=== PATIENT | male | born 1985 | race Asian ===

== ENCOUNTER 2016-12-28 11:04 | Inpatient (IN) | payer BC ==
[2016-12-28] VITALS (10 sets, daily range): BP systolic 117–160; BP diastolic 67–93
[~2016-12-28] VITALS: Ht 167.6 cm; Wt 74.8 kg
[2016-12-28] MEDS ORDERED: IV NORMAL SALINE 1000ML BAG 1,000 ML IV SCH (12:03)
--- NOTE | 2016-12-28 12:06 | PHYS DOC ---
Past Medical History Past Medical History: No Pertinent History Past Surgical History: No Surgical History Alcohol Use: Occasionally Drug Use: None Adult General Chief Complaint Chief Complaint: ABDOMINAL PAIN HPI HPI Patient is a 30 year old male who presents with nausea vomiting and abdominal pain. He states his symptoms started 2 nights ago with just a little epigastric discomfort and then last night he got worse. This morning he took his kids to school and he felt very nauseated he went home and vomited had one loose stool. He states the pain is still around his epigastric/periumbilical area every went to an urgent care and was sent here because he had right lower quadrant tenderness on exam. He denies any past medical history other than taking Claritin for seasonal allergies, denies any surgical history. He states the pain is still around his bellybutton and is constant now. He denies any blood in his vomit or stools. Review of Systems Review of Systems Constitutional: Denies fever or chills [] Eyes: Denies change in visual acuity, redness, or eye pain [] HENT: Denies nasal congestion or sore throat [] Respiratory: Denies cough or shortness of breath [] Cardiovascular: No additional information not addressed in HPI [] GI: Positive for abdominal pain, nausea, vomiting, denies any blood or black tarry stools. : Denies dysuria or hematuria [] Musculoskeletal: Denies back pain or joint pain [] Integument: Denies rash or skin lesions [] Neurologic: Denies headache, focal weakness or sensory changes [] Endocrine: Denies polyuria or polydipsia [] Current Medications Current Medications Current Medications Medications (Trade) Dose Ordered Sig/[facility] Start Time Stop Time Status Last Admin Dose Admin Info (Do NOT chart on this entry -- for MONITORING) 1 each PRN DAILY PRN 12/28/16 12:45 12/30/16 12:44 Iohexol (Omnipaque 240 Mg/ml) 30 ml 1X ONCE 12/28/16 12:45 12/28/16 12:46 DC Iohexol (Omnipaque 300 Mg/ml) 75 ml 1X ONCE 12/28/16 12:45 12/28/16 12:46 DC 12/28/16 13:25 75 ML Morphine Sulfate 2 mg PRN Q15MIN PRN 12/28/16 12:15 12/29/16 12:14 12/28/16 12:18 2 MG Ondansetron HCl (Zofran) 4 mg 1X ONCE 12/28/16 12:30 12/28/16 12:31 DC 12/28/16 12:17 4 MG Piperacillin Sod/ Tazobactam Sod (Zosyn Per Pharmacy) 1 each PRN DAILY PRN 12/28/16 14:15 Piperacillin Sod/ Tazobactam Sod 3.375 gm/Sodium Chloride 50 ml @ 100 mls/hr Q6HRS 12/28/16 15:00 Sodium Chloride 1,000 ml @ 1,000 mls/hr Q1H 12/28/16 12:03 12/28/16 13:02 DC 12/28/16 12:16 1,000 MLS/HR Allergies Allergies Allergies Coded Allergies Type Severity Reaction Last Updated Verified No Known Drug Allergies 12/28/16 No Physical Exam Physical Exam Constitutional: Well developed, well nourished, no acute distress, non-toxic appearance. [] HENT: Normocephalic, atraumatic, bilateral external ears normal, oropharynx moist, no oral exudates, nose normal. [] Eyes: PERRLA, EOMI, conjunctiva normal, no discharge. [] Neck: Normal range of motion, no tenderness, supple, no stridor. [] Cardiovascular:Heart rate regular rhythm, no murmur [] Lungs & Thorax: Bilateral breath sounds clear to auscultation [] Abdomen: Bowel sounds hypoactive, soft, tender to palpation in the right lower quadrant, no masses, no pulsatile masses. [] Skin: Warm, dry, no erythema, no rash. [] Back: No tenderness, no CVA tenderness. [] Extremities: No tenderness, no cyanosis, no clubbing, ROM intact, no edema. [] Neurologic: Alert and oriented X 3, normal motor function, normal sensory function, no focal deficits noted. [] Psychologic: Affect normal, judgement normal, mood normal. [] Current Patient Data Vital Signs Vital Signs Date Time Temp Pulse Resp B/P (MAP) Pulse Ox O2 Delivery O2 Flow Rate FiO2 12/28/16 12:18 15 100 Room Air 12/28/16 11:50 97.6 55 136/90 (105) 97.6 Lab Values Laboratory Tests Test 12/28/16 11:50 12/28/16 12:32 White Blood Count 17.1 x10^3/uL (4.0-11.0) H Red Blood Count 5.60 x10^6/uL (4.30-5.70) Hemoglobin 17.2 g/dL (13.0-17.5) Hematocrit 50.6 % (39.0-53.0) Mean Corpuscular Volume 90 fL (79-100) Mean Corpuscular Hemoglobin 31 pg (25-35) Mean Corpuscular Hemoglobin Concent 34 g/dL (31-37) Red Cell Distribution Width 12.7 % (11.5-14.5) Platelet Count 209 x10^3/uL (140-400) Neutrophils (%) (Auto) 92 % (31-73) H Lymphocytes (%) (Auto) 6 % (24-48) L Monocytes (%) (Auto) 2 % (0-9) Eosinophils (%) (Auto) 0 % (0-3) Basophils (%) (Auto) 0 % (0-3) Neutrophils # (Auto) 15.7 x10^3uL (1.8-7.7) H Lymphocytes # (Auto) 1.0 x10^3/uL (1.0-4.8) Monocytes # (Auto) 0.4 x10^3/uL (0.0-1.1) Eosinophils # (Auto) 0.0 x10^3/uL (0.0-0.7) Basophils # (Auto) 0.0 x10^3/uL (0.0-0.2) Segmented Neutrophils % 85 % (35-66) H Band Neutrophils % 6 % (0-9) Lymphocytes % 8 % (24-48) L Monocytes % 1 % (0-10) Platelet Estimate Adequate (ADEQUATE) Sodium Level 141 mmol/L (136-145) Potassium Level 3.6 mmol/L (3.5-5.1) Chloride Level 104 mmol/L (98-107) Carbon Dioxide Level 27 mmol/L (21-32) Anion Gap 10 (6-14) Blood Urea Nitrogen 14 mg/dL (8-26) Creatinine 0.9 mg/dL (0.7-1.3) Estimated GFR (Cockcroft-Gault) 98.4 Glucose Level 127 mg/dL (70-99) H Calcium Level 9.5 mg/dL (8.5-10.1) Magnesium Level 1.8 mg/dL (1.8-2.4) Total Bilirubin 0.6 mg/dL (0.2-1.0) Direct Bilirubin 0.2 mg/dL (0.0-0.2) Aspartate Amino Transferase (AST) 16 U/L (15-37) Alanine Aminotransferase (ALT) 21 U/L (16-63) Alkaline Phosphatase 69 U/L (46-116) Creatine Kinase 99 U/L (39-308) Creatine Kinase MB (Mass) < 0.5 ng/mL (0.0-3.6) Creatine Kinase MB Relative Index 0.5 % (0-4) Total Protein 7.8 g/dL (6.4-8.2) Albumin 4.4 g/dL (3.4-5.0) Lipase 209 U/L (73-393) Laboratory Tests 12/28/16 11:50 Laboratory Tests 12/28/16 12:32 EKG EKG [] Radiology/Procedures Radiology/Procedures [facility] [address] [place] [address] IMAGING REPORT Signed PATIENT: MAE JACOB ACCOUNT: [id number] : 1985 LOCATION: ER AGE: 30 SEX: M EXAM STATUS: REG ER ORD. PHYSICIAN: WENDY SIMS MD REASON: abd pain PROCEDURE: CT ABD PELV W/ORAL&IV CONTRAST CT abdomen/pelvis Indication: Right lower quadrant pain for one day, nausea and vomiting Technique: CT abdomen/pelvis with 75 mL of Omnipaque 300 IV and 30 mL of Omnipaque 240 by mouth with multi planar reformats. Comparison: None Findings: Heart is normal in size. No pericardial or pleural effusion. Clear lung bases. Liver, spleen, gallbladder, pancreas, adrenals and kidneys are within normal limits. No retroperitoneal or pelvic adenopathy. The appendix is dilated measuring 1.3 cm with periappendiceal inflammatory changes and appendicolith in the proximal appendiceal lumen. No periappendiceal fluid collection. No bowel obstruction. No free pelvic fluid. Bladder and prostate are within normal limits. No right lower quadrant adenopathy. No suspicious bony lesions. Impression: Findings of uncomplicated appendicitis. Findings discussed with ER staff Henrietta on 12/28/2016 at 1:48 PM. PQRS Compliance Statement: One or more of the following individualized dose reduction techniques were utilized for this examination: 1. Automated exposure control 2. Adjustment of the mA and/or kV according to patient size 3. Use of iterative reconstruction technique DICTATED and SIGNED BY: ARCHANA VERA DO DATE: 12/28/16 7341 CC: WENDY SIMS MD; JENNIFER STAPLETON MD ~ Impressions: Acute appendicitis Course & Med Decision Making Course & Med Decision Making Pertinent Labs and Imaging studies reviewed. (See chart for details) CT scan confirms appendicitis. Patient's comfortable currently. Spoke with Dr. Ahumada with surgery regarding the case and Dr. Curiel with internal medicine. I 've ordered Zosyn. Patient's agreeable plans in stable condition this time. Orders have been written. Dragon Disclaimer Dragon Disclaimer This electronic medical record was generated, in whole or in part, using a voice recognition dictation system. Departure Departure Impression: Primary Impression: Appendicitis Disposition: ADMITTED INPATIENT Admitting Physician: Adair Curiel Condition: STABLE Referrals: JENNIFER STAPLETON MD (PCP) Problem Qualifiers Primary Impression: Appendicitis Appendicitis type: acute appendicitis Acute appendicitis type: with localized peritonitis Qualified Codes: K35.3 - Acute appendicitis with localized peritonitis WENDY SIMS MD Dec 28, 2016 12:06
[2016-12-28 12:13] LABS: BASO % 0 % (0-3); EOS % 0 % (0-3); HEMATOCRIT 50.6 % (39.0-53.0); HEMOGLOBIN 17.2 g/dL (13.0-17.5); LYMPH % 6 % (24-48); MEAN CORPUSCULAR HEMOGLOBIN 31 pg (25-35); MEAN CORPUSCULAR HGB CONC 34 g/dL (31-37); MEAN CORPUSCULAR VOLUME 90 fL (79-100); MONO % 2 % (0-9); NEUT % 92 % (31-73); PLATELET COUNT 209 x10^3/uL (140-400); RED CELL DISTRIBUTION WIDTH 12.7 % (11.5-14.5); WHITE BLOOD COUNT 17.1 x10^3/uL (4.0-11.0)
[2016-12-28] MEDS ORDERED: MORPHINE SULFATE 4 MG/ML DISP.SYRIN. IV/SQ PRN (12:15)
[2016-12-28] MEDS ORDERED: ONDANSETRON PF 4 MG/2 ML VIAL. IV ONE (12:30)
[2016-12-28 12:36] LABS: PLT ESTIMATE ADEQUATE (ADEQUATE)
[2016-12-28] MEDS ORDERED: IOHEXOL 300 MG/ML 75 ML VIAL IV ONE (12:45)
[2016-12-28] MEDS ORDERED: IOHEXOL 240 MG/ML 50ML VIAL. PO ONE (12:45)
[2016-12-28] MEDS ORDERED: CONTRAST GIVEN MC PRN (12:45)
[2016-12-28 12:57] LABS: CALCIUM 9.5 mg/dL (8.5-10.1); CREATININE 0.9 mg/dL (0.7-1.3); GFR 98.4; POTASSIUM 3.6 mmol/L (3.5-5.1)
[2016-12-28 13:02] LABS: ALBUMIN 4.4 g/dL (3.4-5.0); DIRECT BILIRUBIN 0.2 mg/dL (0.0-0.2); MAGNESIUM 1.8 mg/dL (1.8-2.4); TOTAL BILIRUBIN 0.6 mg/dL (0.2-1.0); TOTAL PROTEIN 7.8 g/dL (6.4-8.2)
[2016-12-28 13:11] LABS: CREATINE KINASE 99 U/L (39-308)
[2016-12-28 13:15] LABS: CKMB MASS < 0.5 ng/mL (0.0-3.6)
--- NOTE | 2016-12-28 13:51 | RAD ---
CT abdomen/pelvis Indication: Right lower quadrant pain for one day, nausea and vomiting Technique: CT abdomen/pelvis with 75 mL of Omnipaque 300 IV and 30 mL of Omnipaque 240 by mouth with multi planar reformats. Comparison: None Findings: Heart is normal in size. No pericardial or pleural effusion. Clear lung bases. Liver, spleen, gallbladder, pancreas, adrenals and kidneys are within normal limits. No retroperitoneal or pelvic adenopathy. The appendix is dilated measuring 1.3 cm with periappendiceal inflammatory changes and appendicolith in the proximal appendiceal lumen. No periappendiceal fluid collection. No bowel obstruction. No free pelvic fluid. Bladder and prostate are within normal limits. No right lower quadrant adenopathy. No suspicious bony lesions. Impression: Findings of uncomplicated appendicitis. Findings discussed with ER staff Henrietta on 12/28/2016 at 1:48 PM. PQRS Compliance Statement: One or more of the following individualized dose reduction techniques were utilized for this examination: 1. Automated exposure control 2. Adjustment of the mA and/or kV according to patient size 3. Use of iterative reconstruction technique
[2016-12-28] MEDS ORDERED: PIP/TAZO PER PHARMACY MC PRN (14:15)
[2016-12-28] MEDS ORDERED: MORPHINE SULFATE 4 MG/ML DISP.SYRIN. IV PRN (14:15)
[2016-12-28] MEDS ORDERED: IV DEXTROSE 5 %-0.45 % NACL 1,000 ML IV ONE (14:15)
[2016-12-28] MEDS ORDERED: ONDANSETRON PF 4 MG/2 ML VIAL. IV PRN (14:15)
[2016-12-28] MEDS ORDERED: PIPERACILLIN/TAZOBACTAM 3.375 GM in IV NORMAL SALINE 50ML 50 ML IV SCH (15:00)
[2016-12-28] MEDS ORDERED: DEXAMETHASONE SOD PHOS 20 MG/5 ML VIAL. ONE (15:01)
[2016-12-28] MEDS ORDERED: ONDANSETRON PF 4 MG/2 ML VIAL. ONE (15:01)
[2016-12-28] MEDS ORDERED: FAMOTIDINE 20 MG/2 ML VIAL ONE (15:01)
[2016-12-28] MEDS ORDERED: PROPOFOL 20 ML IV ONE (15:01)
[2016-12-28] MEDS ORDERED: LIDOCAINE 2% PF Vial for OR 5 ML VIAL. ONE (15:01)
[2016-12-28] MEDS ORDERED: fentaNYL PF VIAL 100 MCG/2 ML VIAL ONE ×2 (15:04→17:04)
[2016-12-28] MEDS ORDERED: MIDAZOLAM HCL/PF 2 MG/2 ML VIAL. ONE (15:05)
[2016-12-28] MEDS ORDERED: SURGICEL HEMOSTAT 4X8 EACH. ONE (15:08)
[2016-12-28] MEDS ORDERED: BUPIVAC MPF-EPI 0.5%-1:200000 30 ML VIAL. ONE (15:08)
--- NOTE | 2016-12-28 15:24 | PDOC ---
Provider Note Provider Note #[id number]--pmdqqom appendicitis. to OR for lap samuel, duyen open. r/b d/w him and his . CRISTINA JENNINGS MD Dec 28, 2016 15:24
[2016-12-28] MEDS ORDERED: GLYCOPYRROLATE 1 MG/5 ML VIAL. ONE (15:50)
[2016-12-28] MEDS ORDERED: NEOSTIGMINE METHYLSULFATE 5 MG/5 ML SYRINGE. ONE (15:50)
[2016-12-28] MEDS ORDERED: DESFLURANE 31 TO 60 MINUTES IH ONE (15:55)
--- NOTE | 2016-12-28 15:58 | PDOC ---
BRIEF OPERATIVE NOTE Pre-Op Diagnosis appendicitis lap samuel emmanuel ebl 10 ivf 400 jose e well to rr stable. CRISTINA JENNINGS MD Dec 28, 2016 15:58
[2016-12-28] MEDS: oxyCODONE/APAP 5/325 1 TAB TABLET PO PRN ×2 (18:39→19:49)
--- NOTE | 2016-12-28 21:52 | HP ---
ADMIT DATE: 12/28/2016 CHIEF COMPLAINT: Abdominal pain. HISTORY OF PRESENT ILLNESS: The patient is a pleasant, healthy 30-year-old male who presented with abdominal pain. We scanned his belly. He has got appendicitis. He has been taken for emergent surgery for appendicitis. PAST MEDICAL HISTORY: Benign. ALLERGIES: None. FAMILY HISTORY: Hypertension. SOCIAL HISTORY: Works in a lab. He does not drink, smoke or take drugs. He is . MEDICATIONS: Reviewed. REVIEW OF SYSTEMS: GENERAL: No history of weight change, weakness or fevers. SKIN: No bruising, hair changes or rashes. EYES: No blurred, double or loss of vision. NOSE AND THROAT: No history of nosebleeds, hoarseness or sore throat. HEART: No history of palpitations, chest pain or shortness of breath on exertion. LUNGS: Denies cough, hemoptysis, wheezing or shortness of breath. GASTROINTESTINAL: He complains of abdominal pain. GENITOURINARY: No history of frequency, urgency, hesitancy or nocturia. NEUROLOGIC: Denies history of numbness, tingling, tremor or weakness. PSYCHIATRIC: No history of panic, anxiety or depression. ENDOCRINE: No history of heat or cold intolerance, polyuria or polydipsia. EXTREMITIES: Denies muscle weakness, joint pain, pain on walking or stiffness. PHYSICAL EXAMINATION: VITAL SIGNS: Temperature afebrile, pulse 98, respirations 18, blood pressure 113/60. GENERAL: He is alert and cooperative. His is present. HEART: Normal S1 and S2. LUNGS: Clear. ABDOMEN: Soft, tender. There are 3 trocar sites with clean, dry and intact bandaging. ENDOCRINE: No thyromegaly. LYMPHATICS: No cervical nodes. HEMATOPOIETIC: No bruising. ASSESSMENT AND PLAN: Postop laparoscopic appendectomy. The patient is admitted. We are going to watch him overnight. Continue wound care. Intravenous antibiotics. Intravenous fluids. Continue home medicines and p.r.n. narcotics. CRISTOBAL BENOIT DO DR: JONY/luis JOB#: [id number] / [id number]
--- NOTE | 2016-12-28 23:37 | OP ---
DATE OF SURGERY: 12/28/2016 PREOPERATIVE DIAGNOSIS: Acute appendicitis. POSTOPERATIVE DIAGNOSIS: Acute appendicitis. PROCEDURE: Laparoscopic appendectomy. SURGEON: Cristina Jennings MD ANESTHESIA: General. ESTIMATED BLOOD LOSS: 10 mL. INTRAVENOUS FLUIDS: 400 mL. INDICATIONS: The patient is a 30-year-old male who presents with acute appendicitis. FINDINGS: He had nonperforated, nongangrenous appendicitis. PROCEDURE IN DETAIL: After informed consent was obtained, he was taken to the operating room and placed in the supine position. After adequate induction of general anesthesia, he was prepped and draped in the usual sterile fashion. An umbilical skin incision was made with a scalpel, subcutaneous tissues spread with a hemostat. [facility] was used to grab the fascia and lift it anteriorly. Veress was used to gain access to the peritoneal cavity. Low opening pressures confirmed intraperitoneal placement of Veress. Pneumoperitoneum to 15 mmHg was established followed by placement of 5 mm port. A 5 mm 30-degree lens was inserted, which revealed good port placement. No evidence of entry trauma. He was placed head down and rotated towards his left. Three additional ports were placed after injecting the sites with local anesthetic, one was a 5 mm suprapubic port, one was a 12 mm left lower quadrant port. The appendix was visible in the right lower quadrant. A window was made at the base of the appendix with a [place] dissector. Laparoscopic CATE blue load stapler was then used to divide the base of the appendix. Laparoscopic CATE white load stapler was used to divide the mesoappendix. The appendix was placed in laboratory bag and brought out through the left lower quadrant incision. There was some bleeding both from the mesoappendiceal as well as the appendiceal staple line that was controlled with a clip machine pecan gatherer. At this point, the right lower quadrant, right upper quadrant and pelvis were irrigated. Irrigant returned clear. The staple lines were inspected and hemostatic and healthy in appearance. Fascial closure device was used to close the fascia at the left lower quadrant incision using 0 Vicryl suture. The ports removed under direct vision. They were hemostatic. Pneumoperitoneum was desufflated. Skin incisions were closed with 4-0 Monocryl in subcuticular fashion. Sterile dressings were placed. He tolerated the procedure well. There were no apparent complications. He was then transferred in stable condition to the recovery room. CRISTINA JENNINGS MD DR: DOMINIQUE/luis JOB#: [id number] / [id number] KAREN
--- NOTE | 2016-12-29 00:05 | CONS ---
DATE OF CONSULTATION: 12/28/2016 CHIEF COMPLAINT: Abdominal pain. HISTORY OF PRESENT ILLNESS: The patient is a very pleasant 30-year-old male who yesterday began having abdominal pain that was in the epigastrium and has now localized to the right lower quadrant. It is increasingly severe. It is constant, worse with movement, associated with nausea, and he was seen in the ER and diagnosed with appendicitis. PAST MEDICAL HISTORY: Denies. PAST SURGICAL HISTORY: Denies. SOCIAL HISTORY: , nondrinker, nonsmoker. Employed. MEDICATIONS AT HOME: None. ALLERGIES: None. FAMILY HISTORY: Noncontributory to this illness. REVIEW OF SYSTEMS: CONSTITUTIONAL: No fevers or chills. EYES: No abrupt loss of vision or double vision. EARS, NOSE, MOUTH AND THROAT: No loss of hearing or ringing in his ears. CARDIOVASCULAR: No chest pain or heart palpitations. RESPIRATORY: No cough or shortness of breath. GASTROINTESTINAL: See HPI. GENITOURINARY: No dysuria or hematuria. HEMATOLOGIC: No easy bleeding or bruising. MUSCULOSKELETAL: No new myalgias or arthralgias. DERMATOLOGIC: No new skin rashes or lesions. PSYCHIATRIC: No depression or anxiety. ENDOCRINE: No polyuria or polydipsia. PHYSICAL EXAMINATION: VITAL SIGNS: He is afebrile with a temperature of 99.3, respiratory rate is 18, pulse is 80, blood pressure is 160/83, O2 sats 99% on room air. GENERAL: Well-developed, well-nourished male in no acute distress. PSYCHIATRIC: He is cooperative with appropriate mood and affect. NEUROLOGIC: He has no resting tremor. He is alert and oriented x 3. He can move all 4 extremities without difficulty. EYES: Pupils are round and reactive. Sclerae are nonicteric. HENT: Head is atraumatic. Mucous membranes moist. Face symmetric. NECK: Supple without cervical lymphadenopathy, no supraclavicular lymphadenopathy. Neck is nontender without masses. CARDIOVASCULAR: Regular rate and rhythm by palpation of his right radial pulse. His right radial pulse is 2+. No pedal edema noted. Respirations nonlabored. CHEST WALL: Nontender to palpation. ABDOMEN: Soft, nondistended. He is tender in the right lower quadrant with positive tenderness at McBurney's point. He is very tender. He also has a Rovsing sign. DERMATOLOGIC: Exposed portions of the skin are unremarkable without rashes or lesions. LABORATORY DATA: Reviewed. IMAGING: Reviewed. ASSESSMENT: Acute appendicitis. PLAN: The patient is being taken to the operating room for laparoscopic appendectomy, possible open. Risk of bleeding, infection, need to convert to open, injury to intra-abdominal structures, finding a normal appendix or other pathology requiring treatment as well as remote risk of heart attack, stroke, DVT, PE, pneumonia and were all discussed with the patient. Questions were answered, and he desires to proceed with the procedure. CRISTINA JENNINGS MD DR: DOMINIQUE/luis JOB#: [id number] / [id number] KAREN
[2016-12-29] MEDS: oxyCODONE/APAP 5/325 1 TAB TABLET PO PRN ×3 (02:48→13:20)
[2016-12-29 03:05] VITALS: BP 116/74
[2016-12-29] MEDS ORDERED: LIDOCAINE 1% 1 ML SYRINGE. ID PRN (07:00)
[2016-12-29] MEDS ORDERED: HYDROmorphone 2 MG/ML VIAL IV PRN (07:00)
[2016-12-29] MEDS ORDERED: MORPHINE SULFATE 2 MG/ML DISP.SYRIN. IV PRN (07:00)
[2016-12-29] MEDS ORDERED: PROCHLORPERAZINE 10 MG/2 ML VIAL. IV PRN (07:00)
[2016-12-29] MEDS ORDERED: IV RINGERS,LACTATED 1000ML 1,000 ML IV SCH (07:00)
[2016-12-29] MEDS ORDERED: ONDANSETRON PF 4 MG/2 ML VIAL. IV PRN (07:00)
[2016-12-29] MEDS ORDERED: fentaNYL PF VIAL 100 MCG/2 ML VIAL IV PRN ×2 (07:00)
[2016-12-29 07:15] VITALS: BP 133/77
[2016-12-29] MEDS ORDERED: OXYC1TAB7 PO (09:37)
[2016-12-29 11:17] VITALS: BP 100/71
--- NOTE | 2016-12-29 13:01 | PDOC ---
SURGICAL PROGRESS NOTE Subjective tolerating diet ambulating pain managed Vital Signs Vital Signs Date Time Temp Pulse Resp B/P (MAP) Pulse Ox O2 Delivery O2 Flow Rate FiO2 12/29/16 11:17 97.7 66 20 100/71 (81) 98 Room Air 97.7 12/29/16 11:16 10.0 I&O Intake and Output 12/29/16 07:00 Intake Total 1700 ml Balance 1700 ml Intake Oral 900 ml IV Total 800 ml # Voids 1 General: Alert, Oriented X3, Cooperative, No acute distress Abdomen: Soft, Other (lap sites dressings dry, nontender) Labs Laboratory Tests Test 12/28/16 11:50 12/28/16 12:32 White Blood Count 17.1 x10^3/uL (4.0-11.0) Red Blood Count 5.60 x10^6/uL (4.30-5.70) Hemoglobin 17.2 g/dL (13.0-17.5) Hematocrit 50.6 % (39.0-53.0) Mean Corpuscular Volume 90 fL (79-100) Mean Corpuscular Hemoglobin 31 pg (25-35) Mean Corpuscular Hemoglobin Concent 34 g/dL (31-37) Red Cell Distribution Width 12.7 % (11.5-14.5) Platelet Count 209 x10^3/uL (140-400) Neutrophils (%) (Auto) 92 % (31-73) Lymphocytes (%) (Auto) 6 % (24-48) Monocytes (%) (Auto) 2 % (0-9) Eosinophils (%) (Auto) 0 % (0-3) Basophils (%) (Auto) 0 % (0-3) Neutrophils # (Auto) 15.7 x10^3uL (1.8-7.7) Lymphocytes # (Auto) 1.0 x10^3/uL (1.0-4.8) Monocytes # (Auto) 0.4 x10^3/uL (0.0-1.1) Eosinophils # (Auto) 0.0 x10^3/uL (0.0-0.7) Basophils # (Auto) 0.0 x10^3/uL (0.0-0.2) Segmented Neutrophils % 85 % (35-66) Band Neutrophils % 6 % (0-9) Lymphocytes % 8 % (24-48) Monocytes % 1 % (0-10) Platelet Estimate Adequate (ADEQUATE) Sodium Level 141 mmol/L (136-145) Potassium Level 3.6 mmol/L (3.5-5.1) Chloride Level 104 mmol/L (98-107) Carbon Dioxide Level 27 mmol/L (21-32) Anion Gap 10 (6-14) Blood Urea Nitrogen 14 mg/dL (8-26) Creatinine 0.9 mg/dL (0.7-1.3) Estimated GFR (Cockcroft-Gault) 98.4 Glucose Level 127 mg/dL (70-99) Calcium Level 9.5 mg/dL (8.5-10.1) Magnesium Level 1.8 mg/dL (1.8-2.4) Total Bilirubin 0.6 mg/dL (0.2-1.0) Direct Bilirubin 0.2 mg/dL (0.0-0.2) Aspartate Amino Transf (AST/SGOT) 16 U/L (15-37) Alanine Aminotransferase (ALT/SGPT) 21 U/L (16-63) Alkaline Phosphatase 69 U/L (46-116) Creatine Kinase 99 U/L (39-308) Creatine Kinase MB (Mass) < 0.5 ng/mL (0.0-3.6) Creatine Kinase MB Relative Index 0.5 % (0-4) Total Protein 7.8 g/dL (6.4-8.2) Albumin 4.4 g/dL (3.4-5.0) Lipase 209 U/L (73-393) Problem List Problems Medical Problems: (1) Appendicitis Status: Acute Assessment/Plan s/p lap appy ok to sc home FU 2 weeks 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
--- NOTE | 2016-12-29 13:05 | PDOC3 ---
Discharge Summary [facility] Date of Admission: Dec 28, 2016 Discharge Date: Dec 29, 2016 Admitting Diagnosis appendicitis acute Problems: Final Diagnosis Problems Medical Problems: (1) Appendicitis Status: Acute CONSULTS lap appendectomy Brief Hospital Course Mr. Milner is a 31 old M, HEalthy, comes for N/V , abd pain. CT Showed acute appendicitis, underwent laparoscopic appendectomy. has flatus, mild abd pain, no tenderness, no N/V, eats ok. dc home dc time 35min GENERAL: He is alert and cooperative. His is present. HEART: Normal S1 and S2. LUNGS: Clear. ABDOMEN: Soft, there are 3 trocar sites with clean, dry and intact bandaging. no tenderness. ENDOCRINE: No thyromegaly. LYMPHATICS: No cervical nodes. HEMATOPOIETIC: No bruising. Problems: Disposition home CONDITION AT DISCHARGE: Improved Diet regular Scheduled PRN Oxycodone Hcl/Acetaminophen (Oxycodone-Acetaminophen 5-325), 1 TAB PO PRN Q4HRS PRN for PAIN Follow Up sx in 2 weeks YAMILETH OKEEFE MD Dec 29, 2016 13:05
--- NOTE | 2016-12-30 00:20 | ACF ---
Admission Forms Criteria ABDOMINAL PAIN Clinical Indications for Admission to Inpatient Care ( [place]/check or initial the applicable condition/criteria): Admission is indicated for ANY ONE of the following (1)(2)(3)(4)(5)(6): [X]I. Surgery needed that cannot be performed on ambulatory basis [ ]II. Peritoneal signs present (eg, rebound tenderness, rigidity) [ ]III. Evaluation requires patient to not eat or drink for extended period ( eg, more than 24 hours). [ ]IV. Inpatient admission required[B] rather than observation care (see Abdominal Pain: Observation Care guideline as appropriate) because of ANY ONE of the following(7)(8)(9): [ ] a) Hemodynamic instability [ ]b) Severe pain requiring acute inpatient management [ ]c) Identification of etiology or finding that requires inpatient care (eg, aortic dissection, free air,bowel ischemia)(10) [ ]d) Absent bowel sounds with complete ileus (11) [ ]e) Signs of intestinal obstruction[C] [ ]f) Suspected toxic megacolon [ ]g) Severe electrolyte abnormalities requiring inpatient care [ ]h) High fever or infection requiring inpatient admission as indicated by ANY ONE of the following (12)(13): [ ]i) Appropriate outpatient or observation care antimicrobial treatment unavailable, not effective, or not feasible [ ]ii) Documented bacteremia [ ]iii) Temperature greater than 104.9 degrees F (40.5 degrees C) (oral) [ ]iv) Temperature greater than 103.1 degrees F (39.5 degrees C) ( oral) or less than 96.8 degrees F (36 degrees C) (rectal) that does not respond to all emergency treatment measures [ ]i) IV fluid required rather than oral rehydration to replace significant ongoing (eg, for greater than 24 hours) losses (greater than 3 L/m2 per day)(14)(15) [ ]j) Percutaneous or open drainage (eg, abscess, biliary tract) procedures [ ]k) Parenteral nutrition regimen that must be implemented on inpatient basis [ ]l) Other condition, treatment, or monitoring requiring inpatient admission Extended stay beyond goal length of stay may be needed for (1)(3)(4)(10)(16): [ ]a) Surgery (e.g., colectomy, revascularization procedure) [ ]b) Persistent abdominal pain with suspected intra-abdominal process [ ]c) Diagnosed condition requiring continued stay (e.g., pancreatitis, complicated diverticulitis) The original [facility] content created by [facility] has been revised. The portions of the content which have been revised are identified through the use of italic text, and [facility] has neither reviewed nor approved the modified material.All other unmodified content is copyright [facility]. Please see references footnoted in the original [facility] edition 2015 Admission Criteria Met?: Yes VINOD WELCH Dec 30, 2016 00:20
--- NOTE | 2017-01-01 16:43 | PATHOLOGY ---
PATHOLOGY REPORT * * * * * * * * FINAL DIAGNOSIS: Appendix, laparoscopic appendectomy: - Acute appendicitis. (JPM:michelle; 01/01/2017) COMMENT: There is no evidence of rupture. REPORT ELECTRONICALLY SIGNED BY: Portillo Li M.D. DATE/TIME: 01/01/2017 16:41 * * * * * * * * GROSS PATHOLOGY: Received in formalin labeled "Gustavo Jacob appendix," is an appendix measuring 7.1 cm in length and 1.3 cm in diameter with a small amount of attached mesoappendix. The serosal surface is purple carrillo to dark reddish purple with focal areas of adherent pale yellow hazel exudate. Sectioning reveals a widely dilated lumen throughout, filled with thick dark reddish purple hemorrhagic material. Line Therapist sections are submitted in cassette A1. (JPM; 12/29/16) INITIAL CPT CODE(S): A; 26431 Professional services performed [place] [facility] [place] [address] Technical services performed by [facility] at [address] [place] [address]. SPECIMEN(S) RECEIVED: A.Appendix CLINICAL HISTORY: Abdominal pain PATIENT: GUSTAVO JACOB /AGE: 8 1985 (Age: 31) PATIENT #: [id number] ALT CASE #: SPECIMEN COLLECTION DATE: 12/28/2016 SPECIMEN RECEIVED DATE: 12/29/2016 [facility] - [address] [place] [address] - PHONE: [phone] * * * END OF REPORT * * *
== END 2016-12-29 13:00 | disposition home or self-care (01) | DRG 340 ==
LOC: ER 11:04 → 4 NORTH 14:00 → ER 14:34
PROVIDERS: ADMIT Internal Medicine; ATTEND Internal Medicine
PROC: 0DTJ4ZZ Resection of Appendix, Percutaneous Endoscopic Approach (ICD-10-PCS; principal; 2016-12-28 15:45)
DX: K35.3 Acute appendicitis with localized peritonitis (principal); K66.8 Other specified disorders of peritoneum; Z82.49 Family history of ischemic heart disease and other diseases of the circulatory system
CPT/HCPCS: 36415; 74177; 80048; 80076; 82553; 83690; 83735; 85007; 85025; 96361; 96374; 96375; J1100; J2250; J2270; J2405; J2704; J2710; J3010; J3490; J7030; J7120; Q9967; S0028; 99285-25; J2001